=== PATIENT | female | born 1960 | race African-American/Black ===

== ENCOUNTER 2016-07-13 17:16 | Outpatient (CLI) ==
[2016-03-04 05:47] VITALS: BMI 38.2
[2016-07-13 18:10] LABS: BASOPHILS % (AUTO) 0.9 % (0.0-3.0); EOSINOPHILS % (AUTO) 0.2 % (0.0-7.0); HEMATOCRIT 36.9 % (37.0-47.0); HEMOGLOBIN 11.8 g/dl (12.0-16.0); IMMATURE GRANULOCYTE % (AUTO) 0.2 % (0.0-5.0); LYMPHOCYTES # (AUTO) 0.9 K/uL (0.60-3.4); LYMPHOCYTES % (AUTO) 20.4 (10.0-50.0); MEAN CORPUSCULAR HEMOGLOBIN 24.8 pg (27.0-31.0); MEAN CORPUSCULAR VOLUME 77.5 fl (81.0-99.0); MONOCYTES # (AUTO) 0.6 K/uL (0.4-2.0); MONOCYTES % (AUTO) 14.8 (0-10); NEUTROPHILS # (AUTO) 2.7 K/ul (2.0-6.9); NEUTROPHILS % (AUTO) 63.5; PLATELET COUNT 181 10^3/uL (140-440); RED BLOOD COUNT 4.76 10^6/ul (4.20-5.40); WHITE BLOOD COUNT 4.27 K/ul (4.6-10.2)
[2016-07-13 18:30] LABS: FLU INTERNAL QC INTERNAL QC VALID; RAPID FLU A POSITIVE (NEGATIVE); RAPID FLU B NEGATIVE (NEGATIVE)
[2016-07-13 18:35] LABS: ALBUMIN 3.7 g/dL (3.4-5.0); ALBUMIN/GLOBULIN RATIO 1.09; ANION GAP 11.7; BILIRUBIN,TOTAL 0.23 mg/dL (0.00-1.20); BUN/CREATININE RATIO 14.28; CALCIUM 9.7 mg/dL (8.2-10.2); CHOL/HDL RATIO 3.1 (4.5-5.5); CREATININE 1.26 mg/dL (0.60-1.30); POTASSIUM 4.7 mmol/L (3.5-5.10); TOTAL PROTEIN 7.1 g/dL (6.4-8.2)
== END 2016-07-13 17:17 | disposition home or self-care (01) ==
LOC: LAB 17:16
PROVIDERS: ATTEND Nurse Practitioner Family
DX: R05 Cough (principal); R50.9 Fever, unspecified; R52 Pain, unspecified; E11.9 Type 2 diabetes mellitus without complications; I10 Essential (primary) hypertension
CPT/HCPCS: 36415; 80053; 80061; 83036; 85025; 87651; 87804; 87880

== ENCOUNTER 2017-02-27 12:45 | Outpatient (CLI) ==
[2016-03-04 05:47] VITALS: BMI 38.2
[2017-02-27 12:51] LABS: EOSINOPHILS # (AUTO) 0.1 K/ul (0.0-0.7); EOSINOPHILS % (AUTO) 1.5 % (0.0-7.0); HEMATOCRIT 37.7 % (37.0-47.0); HEMOGLOBIN 12.5 g/dl (12.0-16.0); LYMPHOCYTES # (AUTO) 1.5 K/uL (0.60-3.4); LYMPHOCYTES % (AUTO) 36.9 (10.0-50.0); MEAN CORPUSCULAR HEMOGLOBIN 25.4 pg (27.0-31.0); MEAN CORPUSCULAR HGB CONC 33.2 (31.8-35.4); MEAN CORPUSCULAR VOLUME 76.5 fl (81.0-99.0); MONOCYTES # (AUTO) 0.5 K/uL (0.4-2.0); MONOCYTES % (AUTO) 11.9 (0-10); NEUTROPHILS # (AUTO) 1.9 K/ul (2.0-6.9); NEUTROPHILS % (AUTO) 48.7; PLATELET COUNT 216 10^3/uL (140-440); RED BLOOD COUNT 4.93 10^6/ul (4.20-5.40); WHITE BLOOD COUNT 3.96 K/ul (4.6-10.2)
[2017-02-27 13:25] LABS: ALBUMIN 3.6 g/dL (3.4-5.0); ALBUMIN/GLOBULIN RATIO 1.03; ANION GAP 16.1; BILIRUBIN,TOTAL 0.43 mg/dL (0.00-1.20); BUN/CREATININE RATIO 16.05; CHOL/HDL RATIO 4.8 (4.5-5.5); CREATININE 1.37 mg/dL (0.60-1.30); POTASSIUM 4.1 mmol/L (3.5-5.10); TOTAL PROTEIN 7.1 g/dL (6.4-8.2)
== END 2017-02-27 12:46 | disposition home or self-care (01) ==
LOC: LAB 12:45
PROVIDERS: ATTEND Nurse Practitioner Family
DX: E78.5 Hyperlipidemia, unspecified (principal); E11.9 Type 2 diabetes mellitus without complications; I10 Essential (primary) hypertension
CPT/HCPCS: 36415; 80053; 80061; 83036; 85025

== ENCOUNTER 2017-03-02 18:28 | Inpatient (IN) ==
[2017-03-02] MEDS ORDERED: SODIUM CHLORIDE 1,000 ML IV STA ×2 (19:12→20:52)
--- NOTE | 2017-03-02 19:16 | ED.PDOC ---
General ED Provider: Dr. KYLEE FELDER Chief Complaint: Diabetes Stated Complaint: Kiaraeinclaudia is a 56 year old female who comes to the Er with elevated blood glucose for the past few days. It has been has high as 400-599. States she has been taking somebody elses medications for cold for 4 days for cold and found out it was steroids. Time Seen by Physician: 19:01 Mode of Arrival: Walk-In Information Source: Patient Primary Care Provider: JUAN EDMOND Nursing and Triage Documentation Reviewed and Agree: Yes Endocrine Complaint Exam - Diabetic Complication Complaint/Exam Onset/Duration: 4 days Symptoms Are: Still present Initial Severity: Moderate Current Severity: Severe Character: Alert Aggravating: Reports: Medication change (taking unprescribed steroids.) Alleviating: Reports: None Associated Signs and Symptoms: Reports: Nausea. Denies: Decreased LOC, Polydipsia, Polyuria, Polyphagia, Weight loss, Abdominal pain, Vomiting, Fever, Diaphoresis, Fruity breath Related History: Reports: Similar episode, DM 2 Last Glucometer Readin Cardiac Risk Factors: Reports: DM, Hypertension CVA Risk Factors: Reports: None Serious Bacterial Infection Risk Factors: Reports: None Related Surgical History: Reports: None Acetone on Breath: No Dry Mucous Membranes: No Kussmaul Respirations: Yes Glascow Coma Scale (see protocol): 15 Meningeal Signs: No Focal Weakness: None Focal Sensory Loss: None Gait: Normal Nystagmus Present: No Gag Reflex Present: No Finger to Nose: Normal Romberg Test Positive: No Babinski Sign: Negative Right, Negative Left Heel to Toe Normal: No Differential Diagnoses: Diabetic Ketoacidosis Review of Systems - Review Of Systems Constitutional: Reports: Weakness Eyes: Reports: No symptoms Ears, Nose, Mouth, Throat: Reports: No symptoms Respiratory: Reports: No symptoms Cardiac: Reports: No symptoms GI: Reports: Poor appetite : Reports: No symptoms Musculoskeletal: Reports: Back pain Skin: Reports: No symptoms Neurological: Reports: No symptoms Endocrine: Reports: No symptoms Hematologic/Lymphatic: Reports: No symptoms All Other Systems: Reviewed and Negative Past Medical History - Past Medical History Previously Healthy: No Endocrine: Reports: DM 2 (on Metformin. 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 12 FOR MURMER) - Family History Family History: Reports: Diabetes - Social History Smoking Status: Never smoker Hx Substance Use: No Alcohol Screening: Occasionally Physical Exam - Physical Exam Appearance: Well-appearing, No pain distress, Obese Eyes: ALIREZA, EOMI, Conjunctiva clear ENT: Ears normal, Nose normal, Oropharynx normal Respiratory: Airway patent, Breath sounds clear, Breath sounds equal, Respirations nonlabored Cardiovascular: RRR, Pulses normal, No rub, No murmur GI/: Soft, Nontender, No masses, Bowel sounds normal, No Organomegaly Musculoskeletal: Normal strength, ROM intact, No edema, No calf tenderness Skin: Warm, Dry, Normal color Neurological: Sensation intact, Motor intact, Reflexes intact, Cranial nerves intact, Alert, Oriented Psychiatric: Affect appropriate, Mood appropriate Physician Notification - Case Discussed Physician Notified: Dr. Jacinto Time of Notification: 21:00 Critical Care Note - Critical Care Note Total Time (mins): 0 Comments: accu check was 396 Course - Course Hematology/Chemistry: 03/04/17 04:35 03/04/17 04:35 Orders, Labs, Meds: Lab Review 03/02/17 03/02/17 03/02/17 19:24 19:24 19:29 Sodium 133 L Potassium 4.9 Chloride 101 Carbon Dioxide 20 L Anion Gap 16.9 BUN 34 H Creatinine 1.63 H Estimated GFR (MDRD) 39.00 BUN/Creatinine Ratio 20.85 Glucose 544 H* Calcium 9.9 Total Bilirubin 0.23 AST 11 L ALT 17 Alkaline Phosphatase 83 Total Protein 6.7 Albumin 3.4 Globulin 3.3 Albumin/Globulin Ratio 1.03 Urine Color Yellow Urine Clarity Clear Urine pH 5.0 Ur Specific [place] 1.010 Urine Protein Negative Urine Glucose (UA) 2+ Urine Ketones Negative Urine Blood Trace-intact Urine Nitrite Negative Urine Bilirubin Negative Urine Urobilinogen 0.2 Ur Leukocyte Esterase Negative Urine Microscopic RBC 0-2 Ur Squamous Epith Cells Not present Acetone, Qual N Orders Category Date Time Status ADMIT PATIENT INPATIENT .TO [facility] (NON-MONITORED ADMISSION 03/02/17 21: 08 Active BED) GIVE HS SNACK 2100 CARE 03/02/17 21:21 Active INTAKE & OUTPUT Q8HR CARE 03/02/17 21:08 Active VITAL SIGNS Q4HR CARE 03/02/17 21:11 Active ADA 1800 POOL. DIET DIETARY 03/02/17 Breakfast Ordered HS SNACK DIETARY 03/02/17 Dinner Ordered ED ACCUCHECK ASSESSMENT .ONCE EMERGENCY 03/02/17 19:12 Active ED ACCUCHECK ASSESSMENT .ONCE EMERGENCY 03/02/17 20:45 Active ED IV/MEDIPORT/POWERPORT .ONCE EMERGENCY 03/02/17 19:12 Active ACETONE, QUALITATIVE Stat LAB 03/02/17 19:24 Completed BASIC METABOLIC PANEL DAILY@0600 LAB 03/03/17 04:40 Completed BASIC METABOLIC PANEL DAILY@0600 LAB 03/04/17 04:35 Completed BASIC METABOLIC PANEL DAILY@0600 LAB 03/05/17 06:00 Ordered BASIC METABOLIC PANEL DAILY@0600 LAB 03/06/17 06:00 Ordered BASIC METABOLIC PANEL DAILY@0600 LAB 03/07/17 06:00 Ordered BASIC METABOLIC PANEL DAILY@0600 LAB 03/08/17 06:00 Ordered BASIC METABOLIC PANEL DAILY@0600 LAB 03/09/17 06:00 Ordered BASIC METABOLIC PANEL DAILY@0600 LAB 03/10/17 06:00 Ordered BASIC METABOLIC PANEL DAILY@0600 LAB 03/11/17 06:00 Ordered BASIC METABOLIC PANEL DAILY@0600 LAB 03/12/17 06:00 Ordered BASIC METABOLIC PANEL DAILY@0600 LAB 03/13/17 06:00 Ordered BASIC METABOLIC PANEL DAILY@0600 LAB 03/14/17 06:00 Ordered BASIC METABOLIC PANEL DAILY@0600 LAB 03/15/17 06:00 Ordered BASIC METABOLIC PANEL DAILY@0600 LAB 03/16/17 06:00 Ordered BASIC METABOLIC PANEL DAILY@0600 LAB 03/17/17 06:00 Ordered BASIC METABOLIC PANEL DAILY@0600 LAB 03/18/17 06:00 Ordered BASIC METABOLIC PANEL DAILY@0600 LAB 03/19/17 06:00 Ordered BASIC METABOLIC PANEL DAILY@0600 LAB 03/20/17 06:00 Ordered BASIC METABOLIC PANEL DAILY@0600 LAB 03/21/17 06:00 Ordered BASIC METABOLIC PANEL DAILY@0600 LAB 03/22/17 06:00 Ordered CBC W/ AUTO DIFF DAILY@0600 LAB 03/03/17 04:40 Completed CBC W/ AUTO DIFF DAILY@0600 LAB 03/04/17 04:35 Completed CBC W/ AUTO DIFF DAILY@0600 LAB 03/05/17 06:00 Ordered CBC W/ AUTO DIFF DAILY@0600 LAB 03/06/17 06:00 Ordered CBC W/ AUTO DIFF DAILY@0600 LAB 03/07/17 06:00 Ordered CBC W/ AUTO DIFF DAILY@0600 LAB 03/08/17 06:00 Ordered CBC W/ AUTO DIFF DAILY@0600 LAB 03/09/17 06:00 Ordered CBC W/ AUTO DIFF DAILY@0600 LAB 03/10/17 06:00 Ordered CBC W/ AUTO DIFF DAILY@0600 LAB 03/11/17 06:00 Ordered CBC W/ AUTO DIFF DAILY@0600 LAB 03/12/17 06:00 Ordered CBC W/ AUTO DIFF DAILY@0600 LAB 03/13/17 06:00 Ordered CBC W/ AUTO DIFF DAILY@0600 LAB 03/14/17 06:00 Ordered CBC W/ AUTO DIFF DAILY@0600 LAB 03/15/17 06:00 Ordered CBC W/ AUTO DIFF DAILY@0600 LAB 03/16/17 06:00 Ordered CBC W/ AUTO DIFF DAILY@0600 LAB 03/17/17 06:00 Ordered CBC W/ AUTO DIFF DAILY@0600 LAB 03/18/17 06:00 Ordered CBC W/ AUTO DIFF DAILY@0600 LAB 03/19/17 06:00 Ordered CBC W/ AUTO DIFF DAILY@0600 LAB 03/20/17 06:00 Ordered CBC W/ AUTO DIFF DAILY@0600 LAB 03/21/17 06:00 Ordered CBC W/ AUTO DIFF DAILY@0600 LAB 03/22/17 06:00 Ordered COMPREHENSIVE METABOLIC PANEL Stat LAB 03/02/17 19:24 Completed URINALYSIS C & S IF INDICATED Stat LAB 03/02/17 19:29 Completed 0.9 % Sodium Chloride [Saline Flush] MEDS 03/02/17 19:12 Active 1 syr IVF PRN PRN Acetaminophen [Tylenol] MEDS 03/02/17 21:08 Active 650 mg PO Q4H PRN Enoxaparin Sodium [Lovenox] MEDS 03/03/17 09:00 Active 30 mg SUBCUT DAILY Insulin Regular, Human [Humulin R] MEDS 03/02/17 19:21 Discontinued 6 unit SUBCUT ONCE STA Ondansetron HCl/Pf [Zofran 4 mg/2 ml] MEDS 03/02/17 21:08 Active 4 mg IVP Q6H PRN Potassium Chloride in 0.9%NaCl [Sodium Chloride 0.9%- MEDS 03/02/17 21:30 Discontinued KCl 20 Meq] 2,000 ml IV 135 mls/hr Sodium Chloride 0.9% [Sodium Chloride] 1,000 ml MEDS 03/02/17 19:12 Discontinued IV BOLUS Sodium Chloride 0.9% [Sodium Chloride] 1,000 ml MEDS 03/02/17 20:52 Discontinued IV BOLUS RESUSCITATION STATUS Routine OTHERS 03/02/17 21:08 Ordered Medications Generic Name Dose Route Start Last Admin Trade Name Freq PRN Reason Stop Dose Admin Acetaminophen 650 mg 03/02/17 21:08 Tylenol PO Q4H PRN fever or mild pain Aspirin 81 mg 03/03/17 08:00 03/04/17 08:12 Aspirin Chewable PO 81 mg DAILYWM CARMELA Administration Enoxaparin Sodium 30 mg 03/03/17 09:00 03/04/17 08:13 Lovenox SUBCUT Not Given DAILY CARMELA Ferrous Sulfate 324 mg 03/03/17 09:00 03/04/17 08:12 Ferrous Sulfate PO 324 mg BID CARMELA Administration Glipizide 10 mg 03/03/17 08:00 03/04/17 08:12 Glucotrol PO 10 mg BIDWM CARMELA Administration Sodium Chloride 1,000 mls @ 30 mls/hr 03/04/17 08:30 03/04/17 08:40 Sodium Chloride IV 30 mls/hr .[id number] CARMELA Administration Insulin Human Regular 0 - 8 unit 03/02/17 21:21 03/03/17 06:21 Humulin R SUBCUT 3 unit PRN PRN Administration Hyperglycemica Protocol Lisinopril 30 mg 03/03/17 09:00 03/04/17 08:12 Zestril PO 30 mg DAILY CARMELA Administration Lovastatin 10 mg 03/03/17 21:00 03/03/17 20:23 Mevacor PO 10 mg BEDTIME CARMELA Administration Metformin HCl 1,000 mg 03/03/17 08:00 03/04/17 08:12 Glucophage PO 1,000 mg BIDWM CARMELA Administration Ondansetron HCl 4 mg 03/02/17 21:08 Zofran 4 Mg/2 Ml IVP Q6H PRN Nausea / Vomiting Simvastatin 10 mg 03/03/17 09:00 03/04/17 08:11 Zocor PO 10 mg DAILY CARMELA Administration Sitagliptin Phosphate 50 mg 03/04/17 09:00 03/04/17 08:12 Januvia PO 50 mg DAILY CARMELA Administration Sodium Chloride 1 syr 03/02/17 19:12 03/02/17 19:35 Saline Flush IVF 1 syr PRN PRN Administration To flush IV Discontinued Medications Generic Name Dose Route Start Last Admin Trade Name Freq PRN Reason Stop Dose Admin Ferrous Sulfate 324 mg 03/02/17 22:54 03/02/17 23:19 Ferrous Sulfate PO 03/02/17 22:55 324 mg ONCE STA Administration Glipizide 10 mg 03/02/17 23:05 03/02/17 23:20 Glucotrol PO 03/02/17 23:06 10 mg ONCE ONE Administration Sodium Chloride 1,000 mls @ 1,000 mls/hr 03/02/17 19:12 03/02/17 19:35 Sodium Chloride IV 03/02/17 20:11 1,000 mls/hr BOLUS STA Administration Sodium Chloride 1,000 mls @ 1,000 mls/hr 03/02/17 20:52 03/02/17 20:55 Sodium Chloride IV 03/02/17 21:51 1,000 mls/hr BOLUS STA Administration Potassium Chloride/Sodium Chloride 2,000 mls @ 135 mls/hr 03/02/17 21:30 23:20 Sodium Chloride 0.9%-Kcl 20 Meq IV Not Given .[id number] CARMELA Potassium Chloride/Sodium Chloride 1,000 mls @ 135 mls/hr 03/02/17 22:29 04:55 Sodium Chloride 0.9%-Kcl 20 Meq IV 135 mls/hr .[id number] CARMELA Administration Insulin Human Regular 6 unit 03/02/17 19:21 03/02/17 19:42 Humulin R SUBCUT 03/02/17 19:22 6 unit ONCE STA Administration Lovastatin 10 mg 03/03/17 23:08 03/02/17 23:19 Mevacor PO 03/03/17 23:09 10 mg ONCE ONE Administration Metformin HCl 1,000 mg 03/03/17 23:07 03/02/17 23:20 Glucophage PO 03/03/17 23:08 1,000 mg ONCE ONE Administration Non-Formulary Medication 2.5 ml 03/03/17 00:00 03/03/17 05:54 Tobramycin/Dexamethasone [Tobradex Eye Drops] OP Not Given Q6HR CARMELA Non-Formulary Medication 2.5 ml 03/03/17 12:00 03/03/17 18:13 Tobramycin/Dexamethasone [Tobradex Eye Drops] OP Not Given Q6HR CARMELA Sitagliptin Phosphate 100 mg 03/03/17 09:00 03/03/17 09:23 Januvia PO 100 mg DAILY CARMELA Administration Vital Signs: Temp Pulse Resp BP Pulse Ox 03/02/17 18:28 97.7 F 82 16 147/85 H 98 Departure - Departure Time of Disposition: 21:26 Disposition: ADMITTED INPATIENT Discharge Problem: Dehydration, moderate Hyperglycemia due to type 2 diabetes mellitus Qualifiers: Diabetes mellitus exterminator termite insulin use: with exterminator termite use Qualified Code(s): E11.65 - Type 2 diabetes mellitus with hyperglycemia; Z79.4 - exterminator termite (current ) use of insulin; Z79.4 - retirement (current) use of insulin; Z79.4 - exterminator termite (current) use of insulin; Z79.4 - exterminator termite (current) use of insulin Acute renal failure Qualifiers: Acute renal failure type: unspecified Qualified Code(s): N17.9 - Acute kidney failure, unspecified Condition: Fair Pt referred to PMD for follow-up: No (Admitted ) Allergies/Adverse Reactions: Allergies hydrocodone bitartrate [From Lortab] Allergy (Severe, Verified 03/02/17 18:34) sick to stomach Home Medications: Ambulatory Orders Aspirin 81 mg PO DAILY 12/31/13 Tobramycin/Dexamethasone [Tobradex Eye Drops] 2.5 ml OP Q6HR #1 drops.susp 12/04 Glipizide 10 mg PO BID 03/02/17 Simvastatin 10 mg PO DAILY 03/02/17 Disposition Discussed With: Patient, Family
[2017-03-02] MEDS ORDERED: HUMULIN R SUBCUT STA (19:21)
[2017-03-02 19:35] LABS: BILIRUBIN,URINE Negative (NEGATIVE); KETONES,URINE Negative (NEGATIVE); LEUKOCYTE ESTERASE ,URINE Negative (NEGATIVE); NITRITE,URINE Negative (NEGATIVE); PROTEIN,URINE Negative (NEGATIVE); URINE, BLOOD Trace-intact (NEGATIVE)
[2017-03-02 19:38] LABS: ADD URINE MICROSCOPIC YES
[2017-03-02 19:46] LABS: ALBUMIN 3.4 g/dL (3.4-5.0); ALBUMIN/GLOBULIN RATIO 1.03; ANION GAP 16.9; BILIRUBIN,TOTAL 0.23 mg/dL (0.00-1.20); BUN/CREATININE RATIO 20.85; CALCIUM 9.9 mg/dL (8.2-10.2); CREATININE 1.63 mg/dL (0.60-1.30); POTASSIUM 4.9 mmol/L (3.5-5.10); TOTAL PROTEIN 6.7 g/dL (6.4-8.2)
[2017-03-02] MEDS ORDERED: TYLENOL PO PRN (21:08)
[2017-03-02] MEDS ORDERED: ZOFRAN 4 MG/2 ML IVP PRN (21:08)
[2017-03-02] MEDS ORDERED: HUMULIN R SUBCUT PRN (21:21)
[2017-03-02] MEDS ORDERED: KCL 20 MEQ IV SCH (21:30)
[2017-03-02] MEDS ORDERED: SODIUM CHLORIDE 0.9% IV SCH (21:30)
[2017-03-02 21:50] VITALS: BMI 37.5
[2017-03-02] MEDS ORDERED: FERROUS SULFATE PO STA (22:54)
[2017-03-02] MEDS ORDERED: GLUCOTROL PO ONE (23:05)
[2017-03-02] MEDS: SODIUM CHLORIDE 0.9%-KCL 20 MEQ 1,000 ML IV SCH (23:10)
[2017-03-03] MEDS: TOBRAMYCIN OP SCH ×4 (00:07→18:13)
[2017-03-03] MEDS: DEXAMETHASONE OP SCH ×4 (00:07→18:13)
[2017-03-03 05:06] LABS: HEMOGLOBIN 10.7 g/dl (12.0-16.0); MEAN CORPUSCULAR HEMOGLOBIN 25.1 pg (27.0-31.0); MEAN CORPUSCULAR HGB CONC 33.4 (31.8-35.4); MEAN CORPUSCULAR VOLUME 74.9 fl (81.0-99.0); PLATELET COUNT 190 10^3/uL (140-440); RED BLOOD COUNT 4.27 10^6/ul (4.20-5.40); WHITE BLOOD COUNT 5.46 K/ul (4.6-10.2)
[2017-03-03 05:14] LABS: ANISOCYTOSIS NOT PRESENT (NOT PRESENT)
[2017-03-03 05:25] LABS: CALCIUM 8.8 mg/dL (8.2-10.2)
[2017-03-03 05:58] LABS: BUN/CREATININE RATIO 22.33
[2017-03-03 06:09] LABS: CREATININE 1.03 mg/dL (0.60-1.30)
[2017-03-03] MEDS: SODIUM CHLORIDE 0.9%-KCL 20 MEQ 1,000 ML IV SCH ×3 (06:21→21:46)
[2017-03-03] MEDS: ASPIRIN CHEWABLE PO SCH (08:03)
[2017-03-03] MEDS: GLUCOPHAGE PO SCH ×2 (08:03→16:45)
[2017-03-03] MEDS: GLUCOTROL PO SCH ×2 (08:04→16:46)
[2017-03-03] MEDS ORDERED: NON-FORMULARY MEDICATION (Lisinopril [Lisinopril] 30 MG) PO SCH (09:00)
[2017-03-03] MEDS ORDERED: JANUVIA PO SCH (09:00)
[2017-03-03] MEDS ORDERED: NON-FORMULARY MEDICATION (Glipizide [Glipizide] 10 MG) PO SCH (09:00)
[2017-03-03] MEDS ORDERED: NON-FORMULARY MEDICATION (Metformin Hcl [Metformin Hcl] 1,000 MG) PO SCH ×22 (09:00)
[2017-03-03] MEDS ORDERED: NON-FORMULARY MEDICATION (Ferrous Sulfate [Ferrous Sulfate] 325 MG) PO SCH ×22 (09:00)
[2017-03-03] MEDS: FERROUS SULFATE PO SCH ×2 (09:18→20:23)
[2017-03-03] MEDS: LOVENOX SUBCUT SCH (09:18)
[2017-03-03] MEDS: ZESTRIL PO SCH (09:18)
[2017-03-03] MEDS: ZOCOR PO SCH (09:20)
[2017-03-03] MEDS: MEVACOR PO SCH (20:23)
[2017-03-03] MEDS ORDERED: NON-FORMULARY MEDICATION (Lovastatin [Lovastatin] 10 MG) PO SCH (21:00)
[2017-03-03] MEDS ORDERED: GLUCOPHAGE PO ONE (23:07)
[2017-03-03] MEDS ORDERED: MEVACOR PO ONE (23:08)
[2017-03-04] MEDS: SODIUM CHLORIDE 0.9%-KCL 20 MEQ 1,000 ML IV SCH (04:55)
[2017-03-04 04:56] LABS: HEMATOCRIT 32.2 % (37.0-47.0); HEMOGLOBIN 10.6 g/dl (12.0-16.0); MEAN CORPUSCULAR HEMOGLOBIN 25.2 pg (27.0-31.0); MEAN CORPUSCULAR HGB CONC 32.9 (31.8-35.4); MEAN CORPUSCULAR VOLUME 76.7 fl (81.0-99.0); PLATELET COUNT 195 10^3/uL (140-440); WHITE BLOOD COUNT 6.58 K/ul (4.6-10.2)
[2017-03-04 05:11] LABS: ANION GAP 8.3; BUN/CREATININE RATIO 13.68; CALCIUM 8.3 mg/dL (8.2-10.2); CREATININE 0.95 mg/dL (0.60-1.30); POTASSIUM 4.3 mmol/L (3.5-5.10)
[2017-03-04 05:25] LABS: ANISOCYTOSIS NOT PRESENT (NOT PRESENT)
[2017-03-04] MEDS: ZOCOR PO SCH (08:11)
[2017-03-04] MEDS: FERROUS SULFATE PO SCH ×2 (08:12→20:05)
[2017-03-04] MEDS: JANUVIA PO SCH (08:12)
[2017-03-04] MEDS: ZESTRIL PO SCH (08:12)
[2017-03-04] MEDS: GLUCOTROL PO SCH ×2 (08:12→18:05)
[2017-03-04] MEDS: ASPIRIN CHEWABLE PO SCH (08:12)
[2017-03-04] MEDS: GLUCOPHAGE PO SCH ×2 (08:12→18:06)
[2017-03-04] MEDS: LOVENOX SUBCUT SCH (08:13)
[2017-03-04] MEDS ORDERED: SODIUM CHLORIDE 0.9%-KCL 20 MEQ 1,000 ML IV SCH (08:13)
[2017-03-04] MEDS ORDERED: SODIUM CHLORIDE 1,000 ML IV SCH (08:30)
[2017-03-04] MEDS: MEVACOR PO SCH (20:05)
[2017-03-05 04:36] LABS: BASOPHILS # (AUTO) 0.1 K/uL (0-0.2); BASOPHILS % (AUTO) 0.7 % (0.0-3.0); EOSINOPHILS # (AUTO) 0.1 K/ul (0.0-0.7); EOSINOPHILS % (AUTO) 1.4 % (0.0-7.0); HEMATOCRIT 33.7 % (37.0-47.0); HEMOGLOBIN 11.1 g/dl (12.0-16.0); IMMATURE GRANULOCYTE % (AUTO) 0.3 % (0.0-5.0); LYMPHOCYTES # (AUTO) 3.6 K/uL (0.60-3.4); LYMPHOCYTES % (AUTO) 51.3 (10.0-50.0); MEAN CORPUSCULAR HEMOGLOBIN 25.1 pg (27.0-31.0); MEAN CORPUSCULAR HGB CONC 32.9 (31.8-35.4); MEAN CORPUSCULAR VOLUME 76.1 fl (81.0-99.0); MONOCYTES # (AUTO) 0.4 K/uL (0.4-2.0); MONOCYTES % (AUTO) 5.5 (0-10); NEUTROPHILS # (AUTO) 2.9 K/ul (2.0-6.9); NEUTROPHILS % (AUTO) 40.8; PLATELET COUNT 214 10^3/uL (140-440); RED BLOOD COUNT 4.43 10^6/ul (4.20-5.40); WHITE BLOOD COUNT 7.04 K/ul (4.6-10.2)
[2017-03-05 04:56] LABS: ANION GAP 10.5; BUN/CREATININE RATIO 12.35; CREATININE 0.89 mg/dL (0.60-1.30); POTASSIUM 4.5 mmol/L (3.5-5.10)
[2017-03-05] MEDS: GLUCOPHAGE PO SCH ×2 (08:10→17:40)
[2017-03-05] MEDS: JANUVIA PO SCH (08:10)
[2017-03-05] MEDS: GLUCOTROL PO SCH ×2 (08:10→17:40)
[2017-03-05] MEDS: ZESTRIL PO SCH (08:10)
[2017-03-05] MEDS: LOVENOX SUBCUT SCH (08:11)
[2017-03-05] MEDS: ASPIRIN CHEWABLE PO SCH (08:11)
[2017-03-05] MEDS: FERROUS SULFATE PO SCH (08:11)
[2017-03-05] MEDS: ZOCOR PO SCH (08:11)
[2017-03-05 14:33] VITALS: BP 148/70; TEMP 98
--- NOTE | 2017-04-11 15:29 | HP ---
DATE OF SERVICE: 03/02/17 CHIEF COMPLAINT/HISTORY OF PRESENT ILLNESS: The patient has seen Crista Coppola and had outpatient blood work that showed elevated sugar of 398 and A1C 11.4 The patient's medications were changed but sugars were still more than 400 - 500 at that time and started having cough, congestion and bodyaches. She came to the emergency room for evaluation. The patient has a history of HISTORY OF PRESENT ILLNESS: The patient has a history of bypass surgery, CAD and diabetes seen by Dr. Ramachandran in the emergency room. Sugars were 544. BUN and creatinine were increased to 34 and 1.60 from 22 and 1.37 and mildly acidotic with bicarb of 20. Acetones were negative and urine was negative for ketones. At that time, the patient was admitted to the hospital for upper respiratory infection and hyperosmolar, hyperglycemia. REVIEW OF SYSTEMS: CONSTITUTIONAL: Weakness, tiredness. No fever, no chills. HEENT: Normal. ENDOCRINE: No weight gain; no weight loss. CVS: No chest pain. No PND, no orthopnea. No shortness of breath. No PND, no orthopnea. RESPIRATORY: Cough and congestion. No hemoptysis. GI: No nausea, no vomiting. No abdominal pain. No melena. : No hematuria. No polyuria. MUSCULOSKELETAL: No joint swelling. PSYCHIATRIC: Not anxious. No depression. No suicidal thoughts. No homicidal thoughts. SKIN: Intact, no open lesions. PAST MEDICAL HISTORY: CAD Hypertension Dyslipidemia Diabetes Peripheral neuropathy History of pneumonia Osteoarthritis PAST SURGICAL HISTORY: Right arm broken and had surgery Hysterectomy Open heart surgery for valvular problem as a child PERSONAL HISTORY: Does not smoke or drink. No alcohol. FAMILY HISTORY: Significant for hign blood pressure, diabetes and thyroid. MEDICATIONS: (Home) Zestril Glucophage Mevacor Zocor Glipizide ALLERGIES: HYDROCODONE PHYSICAL EXAMINATION: V/S: BP 147/85, respiratory rate 16, heart rate 82, temperature 97.7, saturation 98. HEENT: Atraumatic, normocephalic. No scleral icterus. Pallor positive. Mucosa dry. NECK: Supple. No JVD, no bruit. No lymphadenopathy. No thyromegaly. HEART: S1, S2 normal. Systolic murmur. No cyanosis or clubbing. No ascites. LUNGS: Decreased basilar crackles. No rales or rhonchi. ABDOMEN: Soft, nontender. Bowel sounds are active. No CVA tenderness. No rigidity or guarding. EXTREMITIES: No cyanosis, clubbing or pedal edema. MUSCULOSKELETAL: Normal joints, no swelling. NEUROLOGIC: The patient is awake, alert, oriented times three. SKIN: Intact; no open lesions. LYMPHATIC: No lymph nodes palpable. LABS: Whtie count 3.96, hemoglobin 12.5, hematocrit 37.7, platelet count 216. Sodium 133, potassium 4.9, chloride 101, bicarb 20, BUN 34, creatinine 1.63, glucose 544. Negative for ketones and acetone. ASSESSMENT: 1. HYPEROSMOLAR/ HYPERGLYCEMIA 2. ACUTE RENAL FAILURE 3. UPPER RESPIRATORY INFECTION 4. HISTORY OF HYPERTENSION 5. DYSLIPIDEMIA 6. CORONARY ARTERY DISEASE PLAN: 1. Continue Metformin 2. Continue Glipizide 10 mg p.o. b.i.d. 3. Accu-Cheks with coverage Humulin R 4. IV fluids 5. Lovenox for DVT prophylaxis TIME SPENT: MORE THAN 35 minutes MTDD
--- NOTE | 2017-04-12 15:12 | PN ---
DATE OF SERVICE: 03/03/17 SUBJECTIVE: The patient was admitted with hyperglycemia. Glucose is getting better. Sugars are getting better. BUN and creatinine have improved from 34 to 23. She has some coughing. No fever or chills. No PND, no orthopnea. REVIEW OF SYSTEMS: CONSTITUTIONAL: No fever, no chills. HEENT: Normal. ENDOCRINE: No weight gain, no weight loss. CVS: No angina symptoms. No CHF symptoms. No palpitations. No atypical chest pain for CAD. No shortness of breath. No PND, no orthopnea. RESPIRATORY: Cough. No hemoptysis. GI: No nausea, no vomiting. No abdominal pain. : No hematuria. No polyuria. MUSCULOSKELETAL:. No joint swelling. PSYCHIATRIC: Not anxious. No depression. No suicidal thoughts. No homicidal thoughts. SKIN: Intact. No rash. PHYSICAL EXAMINATION: V/S: BP 107/58, respiratory rate 18, heart rate 73, temperature 98.2, saturation 97 on room air. HEENT: Normocephalic, atraumatic. Mucosa dry. Pallor positive. No icterus. NECK: Supple. No JVD, no carotid bruit. No lymphadenopathy. LUNGS: Decreased breath sounds. Clear to auscultation. No rales or rhonchi. HEART: S1, S2 normal. No S3. No murmur, gallop or regurgitation. ABDOMEN: Soft, nontender. Bowel sounds active. No rigidity. No rebound or guarding. No CVA tenderness. EXTREMITIES: No clubbing, cyanosis or pedal edema. MUSCULOSKELETAL: No joint swelling. NEUROLOGIC: Awake, alert, oriented times three. No focal deficit. LYMPHATIC: No lymph nodes palpable. SKIN: Intact. LABS: Sodium 141, potassium 4.0, chloride 112, bicarb 22, BUN 23, creatinine 1.03, glucose 175. Hemoglobin 12.7, hematocrit 32.0, platelet count 190. ASSESSMENT: 1. STATUS POST HYPEROSMOLAR/HYPERGLYCEMIA 2. UNCONTROLLED DIABETES MELLITUS WITH A1C OF 1.4 3. HYPERTENSION 4. DYSLIPIDEMIA 5. ANEMIA 6. OSTEOARTHRITIS 7. ACUTE RENAL FAILURE PLAN: 1. Will add Januvia 100 mg to current regimen with Metformin and Glipiside. 2. Continue IV fluids. 3. Continue Lovenox for DVT prophylaxis. TIME SPENT: More than 30 minutes MTDD
--- NOTE | 2017-04-12 15:29 | PN ---
DATE OF SERVICE: 03/04/17 SUBJECTIVE: Admitted with hyperosmolar, hyperglycemia. Sugars are getting better. We started Januvia 100 twice a day. The patient's sugars are getting up to 80 and the patient was symptomatic, complaining of weakness and light-headedness so we had concern that Januvia dose has to be changed otherwise the patient is up and about, feeling better. REVIEW OF SYSTEMS: CONSTITUTIONAL: No fever, no chills. HEENT: Normal. ENDOCRINE: No weight gain, no weight loss. CVS: No angina symptoms. No CHF symptoms. No palpitations. No atypical chest pain for CAD. No shortness of breath. No PND, no orthopnea. RESPIRATORY: No cough, no hemoptysis. GI: No nausea, no vomiting. No abdominal pain. : No hematuria. No polyuria. MUSCULOSKELETAL:. No joint swelling. PSYCHIATRIC: Not anxious. No depression. No suicidal thoughts. No homicidal thoughts. SKIN: Intact. No rash. PHYSICAL EXAMINATION: V/S: BP 113/57, respiratory rate 16, heart rate 61, temperature 98.2, saturation 98 on room air. HEENT: Normocephalic, atraumatic. Mucosa dry, pallor positive. No icterus. NECK: Supple. No JVD, no carotid bruit. No lymphadenopathy. LUNGS: Clear to auscultation. No rales or rhonchi. HEART: S1, S2 normal. No S3. No murmur, gallop or regurgitation. ABDOMEN: Soft, nontender. Bowel sounds active. No rigidity. No rebound or guarding. No CVA tenderness. EXTREMITIES: No clubbing, cyanosis or pedal edema. MUSCULOSKELETAL: No joint swelling. NEUROLOGIC: Awake, alert, oriented times three. No focal deficit. LYMPHATIC: No lymph nodes palpable. SKIN: Intact. LABS: White count 6.58, hemoglobin 10.6, hematocrit 32.2, platelet count 195. Sodium 140, potassium 4.3, chloride 115, bicarb 21, BUN 13, creatinine 0.95, glucose 71. ASSESSMENT: 1. HYPOGLYCEMIA SYMPTOMATIC 2. STATUS POST HYPEROSMOLAR/HYPERGLYEMIA 3. DIABETES MELLITUS WITH A1C OF 11.4 4. ACUTE RENAL FAILURE WHICH IS BETTER 5. HYPERTENSION 6. DYSLIPIDEMIA 7. OSTEOARTHRITIS PLAN: 1. Decrease Januvia to 50 twice a day 2. Decrease IV fluids to 30 mL/hr 3. Stop IV fluids with Potassium and give Normal Saline at 30 mL/hr 4. Monitor for hypoglycemia 5. Educated patient for hypoglycemia TIME SPENT: More than 35 minutes MTDD
--- NOTE | 2017-04-12 15:44 | DS ---
DATE OF SERVICE: 03/05/17 FINAL DIAGNOSIS: 1. UNCONTROLLED DIABETES 2. HYPEROSMOLAR/HYPERGLYCEMIA 3. STATUS POST ACUTE RENAL FAILURE 4. STATUS POST HYPOGLYCEMIA 5. HYPERTENSION 6. DYSLIPIDEMIA 7. PERIPHERAL NEUROPATHY 8. OSTEOARTHRITIS 9. HISTORY OF OPEN HEART SURGERY AT AGE OF 12 DISCHARGE INSTRUCTIONS: Followup appointment: Followup at the [facility] within 5 to 7 days. MEDICATIONS AT DISCHARGE: Aspirin 81 mg p.o. daily Blood sugar Diagnostic (One touch ultra test strips) one each MC daily p.r.n. TobraDex eye drops 2.5 mL OP q.6hr #1 drop Lisinopril 30 mg p.o. daily Metformin 1000 mg p.o. b.i.d. Lovastatin 10 mg p.o. bedtime Ferrous Sulfate 325 mg p.o. b.i.d. Glipizide 10 mg p.o. b.i.d. Simvastatin 10 mg p.o. daily Januvia 50 mg p.o daily NEW PRESCRIPTIONS: Januvia 50 mg p.o. daily DIET INSTRUCTIONS: 1800 ADA diet ACTIVITY: As much as tolerated SMOKING: Nonsmoker DISEASE SPECIFIC EDUCATION: Uncontrolled diabetes and DKA discussed with the patient, verbalized understanding HOSPITAL COURSE: This is a 56-year-old female came to the emergency room who was recently seen at the [facility], seen by Crista Coppola. Blood work showed A1C was 11.4 so she was started on new medication but sugars were still high. At that time, the patient came to the emergency room. Initial BUN was 34, creatinine 1.63 which was acute change from 10 days ago. Sugar was 544 with sodium 133, no ketones in the urine. No acetones. At that time, the patient was admitted to the hospital, started on Accu-Cheks with coverage and the next day started the patient on Januvia 100 mg. IV fluids were given. Blood pressure was in control. With the given IV fluids, BUN and creatinine was coming down from 34, 1.63 to 23, 1.03, 13 and 0.95. With the Januvia 100 sugars were dropping to 80s and the patient was symptomatic so the patient was kept one more day. Januvia decreased to 50 mg and sugars were 140s and 150s, did not have any complication during the hospital stay. She was up and about walking. Hemoglobin stable 10.72 to 10.6. As the patient was doing fine and active, she was discharged home. TIME SPENT: More than 60 minutes. MICHELLE
== END 2017-03-05 18:22 | disposition home or self-care (01) | DRG 637 ==
LOC: ED 18:28 → MEDSURG B 21:17
PROVIDERS: ADMIT Emergency Medicine; ATTEND Emergency Medicine
DX: E11.65 Type 2 diabetes mellitus with hyperglycemia (principal); E11.00 Type 2 diabetes mellitus with hyperosmolarity without nonketotic hyperglycemic-hyperosmolar coma (NKHHC); N17.9 Acute kidney failure, unspecified; E86.0 Dehydration; I10 Essential (primary) hypertension; D64.9 Anemia, unspecified; E78.5 Hyperlipidemia, unspecified; M19.90 Unspecified osteoarthritis, unspecified site; G62.9 Polyneuropathy, unspecified; E16.2 Hypoglycemia, unspecified; Z79.4 Long term (current) use of insulin; Z95.1 Presence of aortocoronary bypass graft; Z98.890 Other specified postprocedural states
CPT/HCPCS: 36415; 80048; 80053; 81001; 82009; 82962; 85007; 85025; 96360; 96361; 96372; 99223; 99233; 99239; 99284

== ENCOUNTER 2017-06-21 12:37 | Outpatient (CLI) | END 2017-06-21 12:38 | disposition home or self-care (01) | LOC: LAB 12:37 | PROVIDERS: ATTEND Nurse Practitioner Family | DX: R05 Cough (principal) | CPT/HCPCS: 87804 ==

== ENCOUNTER 2018-02-14 14:00 | Emergency (ER) | payer OTHER ==
[2018-02-14 14:18] VITALS: BP 194/94; TEMP 98.3; BMI 35.6
--- NOTE | 2018-02-14 15:12 | CT ---
EXAM: CT Head HISTORY: Altered speech COMPARISON: None TECHNIQUE: CT head performed without contrast FINDINGS: There is no mass effect, midline shift, or intracranial hemmorhage. Andres white differenti ation is preserved. There is no extra-axial collection. The ventricles, sulci, and basal cisterns a re patent and symmetric. There is chronic ischemic disease of the white matter and cerebral volume l oss. There is no depressed calvarial fracture. The mastoid air cells are clear. The visualized para nasal sinuses are clear. There are intracranial atherosclerotic calcifications. IMPRESSION: 1. No acute intracranial abnormality. MRI recommended if there is clinical concern for acute ischemia . 2. Chronic ischemic disease of the white matter and cerebral volume loss.
--- NOTE | 2018-02-14 15:26 | ED.PDOC ---
General ED Provider: Dr. BRYNN PEREZ Chief Complaint: Non-specific Complaint Stated Complaint: R face muscles tighten up and speech slurred after putting in eye drops - lasts a couple minutes then relaxes. Going on several times today - also some nausea. Time Seen by Physician: 15:15 Mode of Arrival: Walk-In Information Source: Patient, Family Exam Limitations: No limitations Primary Care Provider: KIA SOLIS Nursing and Triage Documentation Reviewed and Agree: Yes Does patient meet sepsis criteria?: No System Inflammatory Response Syndrome: Not Applicable Sepsis Protocol: For patient's 13 years and over: Temp is 96.8 and below OR 101 and greater Pulse >90 BPM Resp >20/minute Acutely Altered Mental Status Are patient's symptoms suggestive of a new infection, such as: -Pneumonia -Skin, Soft Tissue -Endocarditis -UTI -Bone, Joint Infection -Implantable Device -Acute Abdominal Infection -Wound Infection -Meningitis -Blood Stream Catheter Infection -Unknown EENT Complaint Exam - Eye Complaint/Exam Onset/Duration: A few hours ago Symptoms Are: Still present (last event while in CT scan) Timing: Intermittent Initial Severity: Mild Current Severity: Mild Location: Right (face draws up (muscles contract) and speech slurres then goes back to normal with normal speech) Aggravating: Reports: None (But seems to be related to putting in eye drops) Alleviating: Reports: None Orbit Findings: Normal Globe Findings: Intact Lid Findings: Normal Corneal Findings: Clear Review of Systems - Review Of Systems Constitutional: Reports: No symptoms Ears, Nose, Mouth, Throat: Reports: Mouth pain (Facial muscles R side have been tightning and relazing periodically) Musculoskeletal: Reports: Other (Muscle spasms R face) All Other Systems: Reviewed and Negative Past Medical History - Past Medical History Previously Healthy: No Endocrine: Reports: DM 2 (on Metformin. 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 12 FOR MURMER) - Family History Family History: Reports: Diabetes - Social History Smoking Status: Never smoker Hx Substance Use: No Alcohol Screening: Occasionally Physical Exam - Physical Exam Appearance: Well-appearing Eyes: ALIREZA, EOMI, Conjunctiva clear, Right pupil size (3 mm), Left pupil size ( 3 mm) ENT: Ears normal, Nose normal, Oropharynx normal Neck: Supple Respiratory: Airway patent Cardiovascular: RRR, Pulses normal Skin: Warm, Dry, Normal color Neurological: Sensation intact, Motor intact, Reflexes intact, Alert, Oriented Psychiatric: Affect appropriate, Mood appropriate Interpretation - Radiology Interpretation Radiology Interpretation By: Radiologist Exam Interpreted: CT Scan (Negative for acute IC process) Re-Evaluation - Re-Evaluation Time of Re-Evaluation: 15:40 (Concern over BP - given RX by RN now) Critical Care Note - Critical Care Note Total Time (mins): 25 Course - Course Orders, Labs, Meds: Orders Category Date Time Status CT HEAD W/O CONTRAST Stat RADS 02/14/18 14:36 Completed Vital Signs: Temp Pulse Resp BP Pulse Ox 02/14/18 14:00 98.3 F 84 16 194/94 H 99 Departure - Departure Time of Disposition: 17:18 Disposition: HOME SELF-CARE Discharge Problem: Hypertension Qualifiers: Hypertension type: essential hypertension Qualified Code(s): I10 - Essential ( primary) hypertension Instructions: Chronic Hypertension (ED), Muscle Spasm (ED) Condition: Stable Pt referred to PMD for follow-up: Yes (Follow up with primary care; call for appointment) IPMP verified?: No (CS prescription not indicated) Additional Instructions: Follow up with primary care provider for your blood pressure and any needed changes in medicaitons. Call the manager integration tomorrow and let them know of your experience with muscle spasms in the right face that you associate with the eye drops. Let them know that a CT of the head was negative. Allergies/Adverse Reactions: Allergies hydrocodone bitartrate [From Lortab] Allergy (Severe, Verified 02/14/18 14:09) sick to stomach Home Medications: Ambulatory Orders Aspirin 81 mg PO DAILY 12/31/13 Calcium Carbonate/Vitamin D3 [Calcium 600-Vit D3 200 Tablet] 1 each PO d Atropine Sulfate/0.9 %Sod Chlr [Atropine 0.01%-Ns Eye Drops] 1 drop OP BEDTIME 02/14/18 Prednisolone Acetate/Pf [Prednisolone Acet 1% Eye Drop] 1 drop OP Q1HR 02/14/18
[2018-02-14] MEDS ORDERED: ZESTRIL PO STA (15:43)
== END 2018-02-14 17:28 | disposition home or self-care (01) ==
LOC: ED 14:00
DX: I10 Essential (primary) hypertension (principal); M62.838 Other muscle spasm; T49.5X5A Adverse effect of ophthalmological drugs and preparations, initial encounter; E11.9 Type 2 diabetes mellitus without complications; I25.10 Atherosclerotic heart disease of native coronary artery without angina pectoris
CPT/HCPCS: 99283

== ENCOUNTER 2018-03-20 10:52 | Outpatient (CLI) | END 2018-03-20 10:53 | disposition home or self-care (01) | LOC: RHC-LAB 10:52 | PROVIDERS: ATTEND Nurse Practitioner Family | DX: E11.9 Type 2 diabetes mellitus without complications (principal); I10 Essential (primary) hypertension | CPT/HCPCS: 36415; 80053; 80061; 83036; 84443; 85025 ==

== ENCOUNTER 2018-08-13 08:00 | Outpatient (CLI) | END 2018-08-13 08:01 | disposition home or self-care (01) | LOC: RHC-LAB 08:00 | PROVIDERS: ATTEND Nurse Practitioner Family | DX: E11.9 Type 2 diabetes mellitus without complications (principal); I10 Essential (primary) hypertension | CPT/HCPCS: 36415; 80053; 83036; 85025 ==

== ENCOUNTER 2018-08-16 14:01 | Outpatient (CLI) | END 2018-08-16 14:02 | disposition home or self-care (01) | LOC: LAB 14:01 | PROVIDERS: ATTEND Family Medicine | DX: D50.9 Iron deficiency anemia, unspecified (principal); E11.9 Type 2 diabetes mellitus without complications; I10 Essential (primary) hypertension | CPT/HCPCS: 36415; 82272; 82728; 83540; 83550; 85045 ==

== ENCOUNTER 2018-08-18 08:18 | Outpatient (CLI) | END 2018-08-18 08:19 | disposition home or self-care (01) | LOC: LAB 08:18 | PROVIDERS: ATTEND Family Medicine | DX: D50.9 Iron deficiency anemia, unspecified (principal) | CPT/HCPCS: 82272 ==

== ENCOUNTER 2018-08-21 16:22 | Outpatient (CLI) | END 2018-08-21 16:23 | disposition home or self-care (01) | LOC: CAR 16:22 | PROVIDERS: ATTEND Nurse Practitioner Family | DX: I10 Essential (primary) hypertension (principal) | CPT/HCPCS: 93005; 93010 ==

== ENCOUNTER 2018-08-31 12:23 | Outpatient (CLI) | END 2018-08-31 12:24 | disposition home or self-care (01) | LOC: LAB 12:23 | PROVIDERS: ATTEND Ophthalmology Retina Specialist | DX: H20.11 Chronic iridocyclitis, right eye (principal) | CPT/HCPCS: 36415; 81374; 82164; 86592 ==